=== PATIENT | male | born 1965 | race Caucasian/White ===

== ENCOUNTER 2016-12-15 00:40 | Emergency (ER) | payer SELFPAY ==
[~2016-12-15] VITALS: Ht 172.7 cm; Wt 100.0 kg
[~2016-12-15 00:40] MED LIST: MVI; PRIL20TA2
[2016-12-15 00:52] VITALS: BP 190/116; PULSE 96; RESP 16; TEMP 97.8; O2SAT 100
[2016-12-15 01:31] LABS: AUTOMATED NEUTROPHIL # 4.9 TH/MM3 (1.8-7.7); BASOPHIL % 0.3 % (0.0-2.0); EOSINOPHIL # 0.1 TH/MM3 (0-0.4); EOSINOPHIL % 1.4 % (0.0-4.0); HEMO FLAGS DIFF FINAL; LYMPH % 26.7 % (9.0-44.0); MEAN CELL VOLUME 91.5 FL (80.0-100.0); MEAN CORPUSCULAR HEMOGLOBIN 32.3 PG (27.0-34.0); MEAN CORPUSCULAR HGB CONC 35.3 % (32.0-36.0); MONO % 7.3 % (0.0-8.0); NEUT % 64.3 % (16.0-70.0); PLATELET COUNT 252 TH/MM3 (150-450); RED BLOOD COUNT 4.59 MIL/MM3 (4.50-5.90); WHITE BLOOD COUNT 7.6 TH/MM3 (4.0-11.0)
[2016-12-15 01:46] LABS: AMPHETAMINE, URINE NEG (NEG); BARBITURATES, URINE NEG (NEG); COCAINE, URINE NEG (NEG)
[2016-12-15 01:58] LABS: POTASSIUM 3.5 MEQ/L (3.5-5.1)
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
[2016-12-15 02:30] VITALS: O2SAT 98
[2016-12-15 04:30] VITALS: O2SAT 98
[2016-12-15 06:36] VITALS: BP 168/70; PULSE 71; RESP 20; O2SAT 94
[2016-12-15 07:21] VITALS: PULSE 69; RESP 16; O2SAT 99
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
== END 2016-12-15 10:31 | disposition home or self-care (01) ==
LOC: NEPA 00:40
DX: F10.129 Alcohol abuse with intoxication, unspecified (principal); Y90.8 Blood alcohol level of 240 mg/100 ml or more
CPT/HCPCS: 80048; 80307; 80320; 85025